=== PATIENT | female | born 2000 | race Hispanic/Latino ===

== ENCOUNTER 2022-12-11 05:39 | Day surgery (SDC) | payer MEDICAID ==
[2022-12-05 16:54] LABS: BASOPHILS % (AUTO) 0.6 % (0.0-5.0); EOSINOPHILS % (AUTO) 2.2 % (0.0-8.0); HEMATOCRIT 38.8 % (36-48); LYMPHOCYTES % (AUTO) 30.2 % (21.0-51.0); MEAN CORPUSCULAR HEMOGLOBIN 27.8 pg (27.0-33.0); MEAN CORPUSCULAR VOLUME 84.2 fL (79-99); MONOCYTES % (AUTO) 5.7 % (3.0-13.0); NEUTROPHILS % (AUTO) 60.3 % (40.0-77.0); PLATELET COUNT (AUTO) 292 K/uL (130-400); RED BLOOD CELL COUNT(AUTO) 4.61 MIL/uL (4.00-5.50); RED CELL DISTRIBUTION WIDTH 13.2 % (11.0-15.5); WHITE BLOOD COUNT (AUTO) 11.6 K/uL (4.8-10.8)
[2022-12-05 17:01] VITALS: BP 138/78
[2022-12-05 17:07] LABS: CREATININE 0.8 mg/dL (0.5-1.5); POTASSIUM 3.6 mmol/L (3.5-5.1)
[2022-12-05 17:09] LABS: INR 0.93 (0.85-1.15); PROTHROMBIN TIME 9.8 SEC (9.6-11.6)
[2022-12-05 17:11] LABS: PARTIAL THROMBOPLASTIN TIME 25.7 SEC (26.3-35.5)
[2022-12-11] VITALS (8 sets, daily range): BP systolic 115–129; BP diastolic 73–82
[~2022-12-11] VITALS: Ht 167.6 cm; Wt 107.1 kg
[~2022-12-11 05:39] MED LIST: 0.9%NACL 1000ML 1,000 ML IV SCH; VERA180T61 PO
[2022-12-11 06:19] LABS: BASOPHILS % (AUTO) 0.4 % (0.0-5.0); EOSINOPHILS % (AUTO) 3.1 % (0.0-8.0); HEMATOCRIT 40.1 % (36-48); MEAN CORPUSCULAR HEMOGLOBIN 27.5 pg (27.0-33.0); MEAN CORPUSCULAR HGB CONC 32.4 g/dL (32.0-36.0); MONOCYTES % (AUTO) 5.5 % (3.0-13.0); NEUTROPHILS % (AUTO) 64.2 % (40.0-77.0); PLATELET COUNT (AUTO) 251 K/uL (130-400); RED BLOOD CELL COUNT(AUTO) 4.72 MIL/uL (4.00-5.50); RED CELL DISTRIBUTION WIDTH 12.8 % (11.0-15.5); WHITE BLOOD COUNT (AUTO) 8.9 K/uL (4.8-10.8)
[2022-12-11] MEDS ORDERED: 0.9%NACL 1000ML 1,000 ML IV ONE (06:24)
[2022-12-11] MEDS ORDERED: HEPARIN 10,000 UNIT/10ML (1,000 UNIT/ML) VIAL ONE (07:56)
[2022-12-11] MEDS ORDERED: LIDOCAINE HCL 400MG/20ML VIAL ONE ×2 (07:57→08:14)
[2022-12-11] MEDS ORDERED: MEPERIDINE-PF 25 MG/ML SYG ONE ×7 (07:57→10:16)
[2022-12-11] MEDS ORDERED: MIDAZOLAM HCL 1 MG/ML 2ML VIAL ONE ×7 (07:57→10:16)
[2022-12-11] MEDS ORDERED: DiphenhydrAMINE HCL 50 MG/ML VIAL ONE (08:16)
[2022-12-11] MEDS ORDERED: ISOPROTERENOL HCL 0.2 MG/ML AMP/VIAL/BAG ONE (09:05)
== END 2022-12-11 13:45 | disposition home or self-care (01) ==
LOC: DAH 05:39
PROVIDERS: ATTEND Internal Medicine Cardiovascular Disease
DX: I47.1 Supraventricular tachycardia (principal); Z79.01 Long term (current) use of anticoagulants; Z98.890 Other specified postprocedural states; Z98.891 History of uterine scar from previous surgery
CPT/HCPCS: 80048; 84703; 85025 ×2; 85610; 85730; 36415 ×2; 93005 ×2; 93653; 93623; C1894 ×5; C1732 ×2; C1730 ×3; C1893; A4649 ×2; J1200; J3490 ×3; J7030; J2250 ×7; J1644 ×2; A4215; A4222; A4221; A4663; A4216; A4606; J2175 ×7; A4223 ×3; A4335; A4554; 99156; 99157

== ENCOUNTER → 2024-01-05 | Outpatient (CLI) | payer MEDICAID ==
[2024-01-05 16:19] LABS: BASOPHILS # (AUTO) 0.09 K/uL (0.00-0.20); BASOPHILS % (AUTO) 0.8 % (0.0-5.0); EOSINOPHILS # (AUTO) 0.24 K/uL (0.00-0.70); HEMATOCRIT 40.5 % (36-48); IMMATURE GRANULOCYTE ABSOLUTE 0.03 K/uL (0-1); LYMPHOCYTES # (AUTO) 4.6 K/uL (1.0-4.8); LYMPHOCYTES % (AUTO) 38.6 % (21.0-51.0); MEAN CORPUSCULAR HEMOGLOBIN 26.8 pg (27.0-33.0); MEAN CORPUSCULAR HGB CONC 32.6 g/dL (32.0-36.0); MEAN CORPUSCULAR VOLUME 82.3 fL (79-99); MONOCYTES # (AUTO) 0.6 K/uL (0.1-1.0); MONOCYTES % (AUTO) 5.1 % (3.0-13.0); NEUTROPHILS # (AUTO) 6.4 K/uL (1.8-7.7); NEUTROPHILS % (AUTO) 53.2 % (40.0-77.0); PLATELET COUNT (AUTO) 294 K/uL (130-400); RED BLOOD CELL COUNT(AUTO) 4.92 MIL/uL (4.00-5.50); RED CELL DISTRIBUTION WIDTH 13.9 % (11.0-15.5); WHITE BLOOD COUNT (AUTO) 11.9 K/uL (4.8-10.8)
[2024-01-05 16:39] LABS: CREATININE 0.6 mg/dL (0.5-1.0); MAGNESIUM 1.9 mg/dL (1.80-2.40); POTASSIUM 3.8 mmol/L (3.5-5.1); T4 (THYROXINE) 8.9 ug/dL (4.7-13.3); THYROID STIMULATING HORMONE 1.65 uIU/mL (0.36-3.74)
== END | disposition home or self-care (01) ==
LOC: LAB 14:13
PROVIDERS: ATTEND Internal Medicine Cardiovascular Disease
DX: R00.0 Tachycardia, unspecified (principal)
CPT/HCPCS: 36415; 80048; 83735; 84436; 84443; 85025

== ENCOUNTER 2024-04-05 06:03 | Day surgery (SDC) | payer MEDICAID ==
[2024-04-04 13:00] LABS: BASOPHILS # (AUTO) 0.07 K/uL (0.00-0.20); BASOPHILS % (AUTO) 0.7 % (0.0-5.0); EOSINOPHILS # (AUTO) 0.14 K/uL (0.00-0.70); EOSINOPHILS % (AUTO) 1.4 % (0.0-8.0); HEMATOCRIT 35.5 % (36-48); IMMATURE GRANULOCYTE ABSOLUTE 0.05 K/uL (0-1); MEAN CORPUSCULAR HEMOGLOBIN 26.9 pg (27.0-33.0); MEAN CORPUSCULAR HGB CONC 32.1 g/dL (32.0-36.0); MEAN CORPUSCULAR VOLUME 83.7 fL (79-99); MONOCYTES # (AUTO) 0.8 K/uL (0.1-1.0); MONOCYTES % (AUTO) 7.3 % (3.0-13.0); NEUTROPHILS # (AUTO) 6.3 K/uL (1.8-7.7); NEUTROPHILS % (AUTO) 61.1 % (40.0-77.0); PLATELET COUNT (AUTO) 284 K/uL (130-400); RED BLOOD CELL COUNT(AUTO) 4.24 MIL/uL (4.00-5.50); RED CELL DISTRIBUTION WIDTH 13.4 % (11.0-15.5); WHITE BLOOD COUNT (AUTO) 10.3 K/uL (4.8-10.8)
[2024-04-04 13:10] VITALS: BP 107/80; PULSE 82; RESP 16
[2024-04-04 13:15] LABS: CREATININE 0.6 mg/dL (0.5-1.0); POTASSIUM 3.6 mmol/L (3.5-5.1)
[2024-04-04 13:29] LABS: PROTHROMBIN TIME 10.8 SEC (9.6-11.6)
[2024-04-04 13:30] LABS: PARTIAL THROMBOPLASTIN TIME 29.1 SEC (26.3-35.5)
[~2024-04-05] VITALS: Ht 167.6 cm; Wt 77.0 kg
[2024-04-05] VITALS (9 sets, daily range): BP systolic 106–125; BP diastolic 68–79; PULSE 82–119; RESP 11–18
[~2024-04-05 06:03] MED LIST changes: -0.9%NACL 1000ML 1,000 ML IV SCH; +CIPR7.5D7 OT; +NAPR-1023 PO; +PROP60TA20 PO; +SEMA2PEN SQ; -VERA180T61 PO
[2024-04-05] MEDS: 0.9%NACL 1000ML 1,000 ML IV ONE (06:41)
[2024-04-05] MEDS ORDERED: ACET-2743 PO (06:45)
[2024-04-05] MEDS ORDERED: HEPARIN 10,000 UNIT/10ML (1,000 UNIT/ML) VIAL ONE (07:49)
[2024-04-05] MEDS ORDERED: LIDOCAINE HCL 400MG/20ML VIAL ONE (07:49)
[2024-04-05] MEDS ORDERED: MIDAZOLAM HCL 1 MG/ML 2ML VIAL ONE ×5 (07:55→09:56)
[2024-04-05] MEDS ORDERED: MEPERIDINE-PF 25 MG/ML SYG ONE ×5 (07:55→09:56)
[2024-04-05] MEDS ORDERED: ISOPROTERENOL HCL 0.2 MG/ML AMP/VIAL/BAG ONE (07:57)
[2024-04-05] MEDS ORDERED: METOPROLOL TARTRATE 1 MG/ML 5ML VIAL IV ONE (09:24)
== END 2024-04-05 13:35 | disposition home or self-care (01) ==
LOC: DAH 06:03
PROVIDERS: ATTEND Internal Medicine Cardiovascular Disease
DX: R00.0 Tachycardia, unspecified (principal); I49.1 Atrial premature depolarization; R07.89 Other chest pain; Z79.01 Long term (current) use of anticoagulants; Z79.899 Other long term (current) drug therapy
CPT/HCPCS: 80048; 85025; 85610; 85730; 36415; 93005; 93653; 93623; 82948 ×2; C1894 ×5; C1732 ×2; C1730 ×3; C1731; A4649 ×2; J3490 ×3; J7030; J1644 ×3; J2250 ×5; J2175 ×5; A4215; A4222; A4221; A4663; A4216; A4335; A4606; A4223 ×3; 99156; 99157